=== PATIENT | female | born 1965 | race Caucasian/White ===

== ENCOUNTER 2019-07-26 21:00 | Inpatient (IN) | payer OTHER ==
[~2019-07-26 21:00] MED LIST: Aspirin Chewable 81 MG TAB ONE; Heparin 10,000 UNITS/ 10 ML VIAL ONE
[2019-07-26] MEDS ORDERED: Morphine 4 MG/ML VIAL ONE (21:10)
[2019-07-26] MEDS ORDERED: Ondansetron PF 4 MG/2 ML Vial ONE ×2 (21:10→21:48)
[2019-07-26 21:22] LABS: Hemoglobin 15.2 g/dL (12.0-16.0); Mean Corpuscular HGB CONC 33.5 g/dL (32.0-36.0); Mean Corpuscular Hemoglobin 31.1 pg (27.0-31.0); Mean Corpuscular Volume 92.8 fL (78.0-98.0); Mean Platelet Volume 9.7 fL (7.4-10.4); Platelet Count 214 thou/uL (130-400); RBC Distribution Width 12.1 % (11.5-14.5); White Blood Cell (WBC) Count 20.1 thou/uL (4.8-10.8)
[2019-07-26 21:27] LABS: BHCG - Serum Negative (NEGATIVE); Pregs Control Background? CLEAR/WHITE (CLR/WHITE); Pregs Control Bar Appear? YES (CONTROL BAR); Prothrombin Time 13.6 SEC (12.0-14.7)
[2019-07-26 21:33] LABS: PTT 19.2 SEC (22.9-36.1)
[2019-07-26 21:37] LABS: Eosinophils 1 % (0-10); Lymphocytes 38 % (21-51); MDiff Complete? YES; Metamyelocyte 1 % (0-0); Neutrophil 57 % (42-75); Platelet Morphology Comment Appears Adequate; Reactive Lymphocytes 3 % (0-10)
[2019-07-26 21:41] LABS: ALT (SGPT) 11 U/L (8-55); AST (SGOT) 12 U/L (5-34); Albumin 4.3 g/dL (3.5-5.0); Alkaline Phosphatase 87 U/L (40-110); Anion Gap 18 mmol/L (10-20); BUN (Urea Nitrogen) 7 mg/dL (9.8-20.1); Bilirubin, Total 0.3 mg/dL (0.2-1.2); Calc. Creatinine Clearance 0 mL/min (70-130); Carbon Dioxide 19 mmol/L (22-29); Chloride 106 mmol/L (98-107); Estimated GFR-MDRD 64; Globulin 3.1 g/dL (2.4-3.5); Glucose 128 mg/dL (70-105); Magnesium 2.1 mg/dL (1.6-2.6); Potassium 3.4 mmol/L (3.5-5.1); Protein, Total 7.4 g/dL (6.0-8.3); Sodium 140 mmol/L (136-145)
[2019-07-26] MEDS ORDERED: Atropine Sulfate 1 mg/10 ml Syringe ONE (21:48)
[2019-07-26] MEDS ORDERED: Heparin 10,000 UNITS/1 ML VIAL ONE (21:59)
[2019-07-26] MEDS ORDERED: Nitroglycerin 100MG/250ML BOT 250 ML ONE (21:59)
[2019-07-26 22:11] LABS: CKMB 1.3 ng/mL (0-6.6)
[2019-07-26] MEDS ORDERED: traMADol HCl 50 MG TAB PO PRN (22:27)
[2019-07-26] MEDS ORDERED: Zolpidem Tartrate 5 MG TAB PO PRN (22:27)
[2019-07-26] MEDS ORDERED: Milk Of Magnesia 30 ML UDCUP PO PRN (22:27)
[2019-07-26] MEDS ORDERED: Morphine 2 MG/ML SYRINGE SLOW IVP PRN (22:27)
[2019-07-26] MEDS ORDERED: Nitroglycerin 0.4 MG TAB (25 Tab Bottle) SL PRN (22:27)
[2019-07-26] MEDS ORDERED: Mag-Al 1200 mg/1200 mg/30 ML UDCUP PO PRN (22:27)
[2019-07-26] MEDS ORDERED: Acetaminophen/Codeine 30-300mg Tablet PO PRN (22:27)
[2019-07-26] MEDS ORDERED: Sodium Chloride 0.9% 500 ML IV SCH (22:30)
--- NOTE | 2019-07-26 22:36 | RAD ---
CHEST ONE VIEW: History: Stemi Comparison: None FINDINGS: Lungs are mildly hyperinflated. Low grade interstitial prominence but no effusion. IMPRESSION: Subtle cardiomegaly with mild pulmonary venous congestion. POS: HOME
[2019-07-26] MEDS ORDERED: Potassium Chloride 20 MEQ TAB PO SCH (22:45)
[2019-07-26 22:54] VITALS: BMI 21.0
--- NOTE | 2019-07-26 23:04 | HP ---
CHIEF COMPLAINT: Chest pain. HISTORY OF PRESENT ILLNESS: Ms. Jolly is a pleasant 53-year-old white female, who comes to the hospital for chest pain. She started having chest pain about 30 minutes prior to arrival to the hospital. It was severe midsternal. She had dinner probably about an hour and a half prior. She had some marijuana and some alcohol before that. She came in. EKG showed inferior ST elevations that looked like a posterior [place], so IV fluids were given and STEMI pager was activated. On my arrival, she was writhing in pain 10/10. We took her emergently to the catheterization lab, where she was found to have an occluded mid RCA. This was successfully wired and stented. She had a little spasm distal to the stent, which alleviated with IC nitroglycerin. She tolerated the procedure well. Imaging of the left coronary system showed just mild 40% mid LAD lesion and severe distal left circumflex lesion just before a small to medium-sized OM 3. She did well. Angio-Seal was placed in the right femoral arteriotomy site. She is pain free now. She did have some AIVR and bradycardia once we opened up the artery, but when she left the r and d lab technician she was in sinus rhythm and her STs had improved significantly. PAST MEDICAL HISTORY: 1. Hyperlipidemia. 2. Depression. 3. Glaucoma. SURGICAL HISTORY: . ALLERGIES: BIAXIN. OUTPATIENT MEDICATIONS: 1. Prozac 10 mg a day. 2. Estradiol 1 mg a day. 3. Lumigan eye drops. 4. Rosuvastatin. Unknown dose. FAMILY HISTORY: No early coronary artery disease. It is positive for diabetes and hypertension and her father had non-Hodgkin's lymphoma and mother had breast cancer. SOCIAL HISTORY: Admits to marijuana use and alcohol use occasionally. One pack a day of cigarettes for many years now. REVIEW OF SYSTEMS: A 12-point review of systems was done and was negative unless stated in the history of present illness. PHYSICAL EXAMINATION: VITAL SIGNS: Temperature 98.2, pulse 62, respiratory rate 18, saturating 98% on 2 L nasal cannula, and blood pressure 132/64. GENERAL: Awake, alert, and oriented x3, in no distress. HEENT: Normocephalic and atraumatic. NECK: Supple. LUNGS: Clear. CARDIOVASCULAR: S1, S2. No S3 or S4. No murmurs. ABDOMEN: Soft. Positive bowel sounds. EXTREMITIES: No edema. SKIN: Warm and dry. LABORATORY DATA: Laboratory work was reviewed which showed a white count of 20, hemoglobin of 15, hematocrit 45, and platelet count of 214. Coags were reviewed. Chemistry with a sodium 140, potassium was 3.4, chloride 106, carbon dioxide of 19, anion gap of 18, BUN of 7, creatinine 0.93, GFR of 64, and glucose was 128. Lactic acid was 3.6. Calcium, magnesium, total bilirubin, AST, ALT, and alkaline phosphatase were all normal. CK-MB was normal at 1.3. Troponin was 0.067. TSH was 4.07. test was negative. Albumin was 4.3. EKG was reviewed, inferior ST elevations with reciprocal changes. ASSESSMENT: 1. Inferior ST-elevation myocardial infarction. 2. Hyperlipidemia. 3. Substance abuse. 4. Tobacco use. PLAN: 1. Status post drug-eluting stent to the RCA. 2. Residual disease on her left circumflex will be dealt electively, probably in one month. 3. Continue Brilinta and aspirin for a minimum of 1 year. 4. High dose statin. We will increase her Crestor to max dose of 40 mg a day. 5. We will hold off on starting a beta-dean or an SHWETHA inhibitor today as her blood pressure was borderline low leaving the catheterization table. We will re-dress tomorrow morning. 6. Tobacco cessation counselling performed. 7. Cardiac rehab consult has been placed. 8. PPI for stress ulcer prophylaxis. 9. Full code. 10. Disposition, pending clinical evolution. Job ID: [id number] [email or web address]
[2019-07-26 23:43] LABS: CKMB 17.1 ng/mL (0-6.6)
[2019-07-26 23:44] LABS: Troponin I 1.311 ng/mL (< 0.028)
[2019-07-27 00:30] LABS: Lactic Acid 1.3 mmol/L (0.5-2.2)
[2019-07-27 02:04] LABS: Amphetamine Not Detected (NotDetected); Barbiturates Screen Not Detected (NotDetected); Benzodiazepine Screen Not Detected (NotDetected); Cocaine Metabolite Screen Not Detected (NotDetected); Medtox Control Line Valid? VALID (VALID); Medtox Reader # READER 4; Methadone Not Detected (NotDetected); Methamphetamine Not Detected (NotDetected); Opiate Screen Detected (NotDetected); Oxycodone Screen Not Detected (NotDetected); Phencyclidine (PCP) Not Detected (NotDetected); THC/Cannabinoid Screen Detected (NotDetected); Tricyclic Screen Not Detected (NotDetected)
[2019-07-27 05:34] LABS: #Basophils 0.1 thou/uL (0.0-0.2); #Lymphocytes 3.3 thou/uL (1.20-3.40); #Monocytes 0.7 thou/uL (0.11-0.59); #Neutrophils 11.5 thou/uL (1.40-6.50); %Basophils 0.5 % (0.0-1.0); %Eosinophils 0.2 % (0.0-10.0); %Lymphocytes 21.2 % (21.0-51.0); %Monocytes 4.6 % (0.0-10.0); %Neutrophils 73.5 % (42.0-75.0); Hemoglobin 13.3 g/dL (12.0-16.0); Mean Corpuscular HGB CONC 32.7 g/dL (32.0-36.0); Mean Corpuscular Hemoglobin 30.3 pg (27.0-31.0); Mean Corpuscular Volume 92.8 fL (78.0-98.0); Mean Platelet Volume 8.5 fL (7.4-10.4); Platelet Count 264 thou/uL (130-400); RBC Distribution Width 12.1 % (11.5-14.5); Red Blood Cell (RBC) Count 4.38 mill/uL (4.20-5.40); White Blood Cell (WBC) Count 15.7 thou/uL (4.8-10.8)
[2019-07-27 05:58] LABS: ALT (SGPT) 16 U/L (8-55); AST (SGOT) 69 U/L (5-34); Albumin 3.8 g/dL (3.5-5.0); Alkaline Phosphatase 79 U/L (40-110); Anion Gap 13 mmol/L (10-20); BUN (Urea Nitrogen) 8 mg/dL (9.8-20.1); Bilirubin, Total 0.2 mg/dL (0.2-1.2); Calc. Creatinine Clearance 73 mL/min (70-130); Carbon Dioxide 21 mmol/L (22-29); Cardiac Risk 3.3 (Less than 4.5); Chloride 107 mmol/L (98-107); Cholesterol 162 mg/dl (< 200 Desired); Estimated GFR-MDRD 81; Globulin 2.4 g/dL (2.4-3.5); Glucose 135 mg/dL (70-105); HDL Cholesterol 49 mg/dL (>60 Neg Risk); LDL Cholesterol, Calculated 84 mg/dL; Potassium 4.8 mmol/L (3.5-5.1); Protein, Total 6.2 g/dL (6.0-8.3); Sodium 136 mmol/L (136-145); Triglycerides 145 mg/dL (Less than 150)
[2019-07-27 06:04] LABS: CKMB 98.7 ng/mL (0-6.6)
[2019-07-27] MEDS: TICAGRELOR 90 MG TABLET PO SCH ×2 (08:32→20:22)
[2019-07-27] MEDS: Aspirin Chewable 81 MG TAB PO SCH (08:32)
[2019-07-27] MEDS: Lisinopril 5 MG TAB PO SCH (08:59)
--- NOTE | 2019-07-27 09:25 | CON ---
DATE OF CONSULTATION: HISTORY OF PRESENT ILLNESS: Marcelle Jolly is a 53-year-old female, who presents with chest pain. She really has no primary care physician. Apparently, there was associated shortness of breath. She was taken to the cardiac produce laborer. Please review the ux design manager note. Apparently, she underwent stenting. She tells me she has been smoking a pack a day for most of her life without any prior history of TB, pneumonia, or bronchial asthma. PAST MEDICAL HISTORY: Pertinent for high cholesterol, hypertension, and depression. HOME MEDICATIONS: Include 1. Prozac 10. 2. . 3. Lipitor. PAST SURGICAL HISTORY: . ALLERGIES: APPARENTLY BIAXIN. REVIEW OF SYSTEMS: Unremarkable. PHYSICAL EXAMINATION: VITAL SIGNS: Post cardiac cath, sats 92%, blood pressure elevated at 167/124, CHEST: No wheezing or crackles. CARDIAC: Normal S1, S2. ABDOMEN: No masses. Emergency cardiac cath status post cardiac stent as outlined. Hypertension, depression, high cholesterol. EKG showing acute inferior myocardial infarction. Septal infarct. PLAN: She is to refrain from smoking. Otherwise, continue present treatment as per Cardiology. Pulmonary will follow while in the ICU. Job ID: [id number]
--- NOTE | 2019-07-27 17:52 | PDOC.CPN ---
- Subjective Date: 07/27/19 Time: 17:50 Interval history: Doing well. No chest pain. - Review of Systems General: denies: fever/chills, weight/appetite/sleep changes, night sweats, fatigue Respiratory: denies: cough, congestion, shortness of breath, exercise intolerance Cardiovascular: denies: chest pain, palpitation, edema, paroxysmal nocturnal dyspnea, orthopnea Gastrointestinal: denies: nausea, vomiting, diarrhea, constipation, abd pain, GI bleeding Musculoskeletal: denies: pain, tenderness, stiffness, swelling, arthritis/ arthralgias Neurological: denies: numbness, syncope, seizure, weakness - Objective Allergies/Adverse Reactions: Allergies Allergy/AdvReac Type Severity Reaction Status Date / Time clarithromycin [From Biaxin] Allergy Verified 07/27/19 02:19 Visit Medications: Current Medications Acetaminophen/Codeine Phosphate (Tylenol #3) 1 tab PO Q4H PRN PRN Reason: Mild Pain (1-3) Al Hydroxide/Mg Hydroxide (Maalox) 30 ml PO Q3H PRN PRN Reason: Indigestion Aspirin (Aspirin Chewable) 81 mg PO DAILY [facility] Last Admin: 07/27/19 08:32 Dose: 81 mg Carvedilol (Coreg) 3.125 mg PO BID-[facility] Lisinopril (Zestril) 5 mg PO DAILY [facility] Last Admin: 07/27/19 08:59 Dose: 5 mg Magnesium Hydroxide (Milk Of Magnesium) 30 ml PO Q12H PRN PRN Reason: Constipation Morphine Sulfate (Morphine) 2 mg SLOW IVP Q4H PRN PRN Reason: Moderate Chest Pain (4-6) Nitroglycerin (Nitrostat) 0.4 mg SL Q5MIN PRN PRN Reason: Chest Pain Pantoprazole Sodium (Protonix) 40 mg PO DAILY [facility] Last Admin: 07/27/19 08:32 Dose: 40 mg Rosuvastatin Calcium (Crestor) 40 mg PO HS [facility] Sodium Chloride (Flush - Normal Saline) 10 ml IVF Q12HR [facility] Last Admin: 07/27/19 09:00 Dose: 10 ml Sodium Chloride (Flush - Normal Saline) 10 ml IVF PRN PRN PRN Reason: Saline Flush Ticagrelor (Brilinta) 90 mg PO BID [facility] Last Admin: 07/27/19 08:32 Dose: 90 mg Tramadol HCl (Ultram) 50 mg PO Q6H PRN PRN Reason: Mild Pain (1-3) Zolpidem Tartrate (Ambien) 5 mg PO HSPRN PRN PRN Reason: Insomnia Vital Signs & Weight: Vital Signs Temp Pulse Pulse Pulse BP BP BP 07/27/19 16:00 97.8 F 07/27/19 09:37 73 70 169/99 H 170/105 H 07/27/19 09:00 97.8 F 07/27/19 08:59 78 167/124 H 07/27/19 07:59 Pulse Ox Pulse Ox Pulse Ox 07/27/19 16:00 07/27/19 09:37 97 98 07/27/19 09:00 07/27/19 08:59 07/27/19 07:59 97 Weight 115 lb 3.2 oz - Physical Exam General: alert & oriented x3 HEENT: mucus membranes moist Neck: supple neck Cardiac: regular rate and rhythm Lungs: clear to auscultation Neuro: grossly intact Abdomen: active bowel sounds Extremities: no edema Skin: clear Musculoskeletal: no pain - Labs Result Diagrams: 07/27/19 05:25 07/27/19 05:25 Troponin/CKMB CK-MB (CK-2) 98.7 ng/mL (0-6.6) H* 07/27/19 05:25 Troponin I 20.470 ng/mL (< 0.028) H* 07/27/19 05:25 - Telemetry Sinus rhythms and dysrhythmias: sinus rhythm - Assessment/Plan Assessment/Plan: 1. Inferior STEMI, early presentation within 30 minutes of symptoms. 2. HTN 3. Ischemic CM 4. Tobacco use 5. Marihuana use PLAN: - Will transfer to telemetry - Will start BB and ACEI for BP and post WI therapies - Continue ASA/Brilinta - Continue high dose statin. - Cardiac rehab - Home tomorrow afternoon if she remains stable. - Counselled on tobacco cessation.
[2019-07-27] MEDS ORDERED: Carvedilol 3.125 MG TAB PO SCH (18:30)
[2019-07-27] MEDS ORDERED: Rosuvastatin 20 MG TAB PO SCH (21:00)
[2019-07-28 04:05] LABS: #Basophils 0.1 thou/uL (0.0-0.2); #Eosinphils 0.1 thou/uL (0.0-0.7); #Monocytes 0.6 thou/uL (0.11-0.59); #Neutrophils 6.7 thou/uL (1.40-6.50); %Basophils 0.6 % (0.0-1.0); %Lymphocytes 35.1 % (21.0-51.0); %Monocytes 5.2 % (0.0-10.0); Mean Corpuscular HGB CONC 32.8 g/dL (32.0-36.0); Mean Corpuscular Hemoglobin 30.7 pg (27.0-31.0); Mean Corpuscular Volume 93.5 fL (78.0-98.0); Mean Platelet Volume 8.6 fL (7.4-10.4); Platelet Count 247 thou/uL (130-400); RBC Distribution Width 12.2 % (11.5-14.5); Red Blood Cell (RBC) Count 4.25 mill/uL (4.20-5.40); White Blood Cell (WBC) Count 11.5 thou/uL (4.8-10.8)
[2019-07-28 04:23] LABS: Anion Gap 14 mmol/L (10-20); BUN (Urea Nitrogen) 9 mg/dL (9.8-20.1); Calc. Creatinine Clearance 73 mL/min (70-130); Calcium 9.2 mg/dL (7.8-10.44); Carbon Dioxide 22 mmol/L (22-29); Chloride 104 mmol/L (98-107); Estimated GFR-MDRD 81; Glucose 92 mg/dL (70-105); Sodium 136 mmol/L (136-145)
--- NOTE | 2019-07-28 07:15 | EKG ---
Test Reason : Blood Pressure : / mmHG Vent. Rate : 066 BPM Atrial Rate : 066 BPM P-R Int : 150 ms QRS Dur : 072 ms QT Int : 436 ms P-R-T Axes : 070 065 -24 degrees QTc Int : 457 ms Sinus rhythm with occasional Premature ventricular complexes Biatrial enlargement T wave abnormality, consider inferior ischemia Abnormal ECG When compared with ECG of 26-JUL-2019 21:13, (Unconfirmed) Significant changes have occurred Confirmed by DR. Lianna MEEHAN ([id number]) on 07/28/2019 7:15:22 AM Referred By: HERMAN Confirmed By:DR. Lianna MEEHAN
[2019-07-28] MEDS ORDERED: Carvedilol 3.125 MG TAB PO SCH (08:00)
[2019-07-28] MEDS: TICAGRELOR 90 MG TABLET PO SCH (08:30)
[2019-07-28] MEDS: Lisinopril 5 MG TAB PO SCH (08:31)
[2019-07-28] MEDS: Aspirin Chewable 81 MG TAB PO SCH (08:31)
[2019-07-28] MEDS ORDERED: Lisinopril 10 MG TAB PO SCH (13:15)
[2019-07-28 13:22] VITALS: TEMP 97.5
--- NOTE | 2019-07-28 13:26 | DIS ---
DATE OF ADMISSION: 07/26/2019 DATE OF DISCHARGE: 07/28/2019 DISCHARGING PHYSICIAN: Lukasz Mares MD. PRIMARY DIAGNOSES: 1. Inferior ST-elevation myocardial infarction. 2. Hypertension. 3. Tobacco use. SUMMARY: Ms. Jolly is a pleasant 53-year-old white female, who came to the hospital for chest pain. She was diagnosed with an inferior ST-elevation [place], taken emergently to the catheterization lab, where she was found to have an occluded mid RCA. This was wired and stented successfully with a drug-eluting stent. She did well after that. Chest pain was completely gone after the artery was opened up. She did well postoperatively for the last couple of days. She has no symptoms, no more chest pain, no tightness or pressure. Walking around without issues. No shortness of breath. She has tolerated her home medications well. We uptitrated the lisinopril and beta-dean as her blood pressure was little bit on the high side. She is ready for discharge today. We counseled her on tobacco cessation over 10 minutes. DISCHARGE MEDICATIONS: 1. Resume her outpatient medicines except for Crestor, which will be increased to 40 mg a day. 2. Lisinopril 10 mg a day. 3. Carvedilol 3.125 b.i.d. 4. Brilinta 90 mg b.i.d. 5. Aspirin 81 mg a day. 6. Sublingual nitroglycerin p.r.n. FOLLOWUP: 1. Follow up with myself in 2 to 4 weeks. 2. Follow up with PCP in 1 month. Over 45 minutes spent at bedside counseling for discharge. Job ID: [id number] [id number]
[2019-07-28 14:59] VITALS: BP 145/82
[2019-07-29] MEDS ORDERED: Lisinopril 10 MG TAB PO SCH (09:00)
== END 2019-07-28 15:59 | disposition home or self-care (01) | DRG 247 ==
LOC: ERS 21:00 → CCL 21:53 → CCU 22:48 → 2NO 07-28 06:54
PROVIDERS: ADMIT Internal Medicine Cardiovascular Disease; ATTEND Internal Medicine Cardiovascular Disease
PROC: 027034Z Dilation of Coronary Artery, One Artery with Drug-eluting Intraluminal Device, Percutaneous Approach (ICD-10-PCS; principal; 2019-07-26)
PROC: 4A023N7 Measurement of Cardiac Sampling and Pressure, Left Heart, Percutaneous Approach (ICD-10-PCS; 2019-07-26)
PROC: B2151ZZ Fluoroscopy of Left Heart using Low Osmolar Contrast (ICD-10-PCS; 2019-07-26)
PROC: B2111ZZ Fluoroscopy of Multiple Coronary Arteries using Low Osmolar Contrast (ICD-10-PCS; 2019-07-26)
DX: I21.19 ST elevation (STEMI) myocardial infarction involving other coronary artery of inferior wall (principal); E78.5 Hyperlipidemia, unspecified; F32.9 Major depressive disorder, single episode, unspecified; H40.9 Unspecified glaucoma; F12.10 Cannabis abuse, uncomplicated; E78.00 Pure hypercholesterolemia, unspecified; F17.210 Nicotine dependence, cigarettes, uncomplicated; I10 Essential (primary) hypertension; I25.5 Ischemic cardiomyopathy; Z88.1 Allergy status to other antibiotic agents; Z79.899 Other long term (current) drug therapy
CPT/HCPCS: 36415; 71045; 80048; 80053; 80061; 80306; 82550; 82553; 83605; 83735; 83880; 84443; 84484; 84703; 85025; 85347; 85610; 85730; 92928; 93005; 93010; 93306; 93458; 93798; 96374; 96375; C1760; C1769; C1874; C1887; C9600; J0461; J1644; J2270; J2405

== ENCOUNTER 2021-03-22 12:29 | Outpatient (CLI) | payer OTHER | END 2021-03-22 12:30 | disposition home or self-care (01) | LOC: BICULT 12:29 | PROVIDERS: ATTEND Urology | DX: N39.46 Mixed incontinence (principal); N39.0 Urinary tract infection, site not specified | CPT/HCPCS: 76770 ==

== ENCOUNTER 2021-12-27 12:31 | Outpatient (CLI) | payer OTHER | END 2021-12-27 12:32 | disposition home or self-care (01) | LOC: BICMAMMO 12:31 | PROVIDERS: ATTEND Family Medicine | DX: Z12.31 Encounter for screening mammogram for malignant neoplasm of breast (principal); Z91.89 Other specified personal risk factors, not elsewhere classified; Z80.3 Family history of malignant neoplasm of breast | CPT/HCPCS: 77063; 77067 ==

== ENCOUNTER 2023-01-15 11:40 | Outpatient (CLI) | payer OTHER | END 2023-01-15 11:41 | disposition home or self-care (01) | LOC: BICMAMMO 11:40 | PROVIDERS: ATTEND Family Medicine | DX: Z12.31 Encounter for screening mammogram for malignant neoplasm of breast (principal); Z80.3 Family history of malignant neoplasm of breast; Z91.89 Other specified personal risk factors, not elsewhere classified | CPT/HCPCS: 77063; 77067 ==

== ENCOUNTER 2024-06-01 15:37 | Outpatient (CLI) | payer OTHER | END 2024-06-01 15:38 | disposition home or self-care (01) | LOC: BICMAMMO 15:37 | PROVIDERS: ATTEND Family Medicine | DX: Z12.31 Encounter for screening mammogram for malignant neoplasm of breast (principal); Z80.3 Family history of malignant neoplasm of breast; Z91.89 Other specified personal risk factors, not elsewhere classified | CPT/HCPCS: 77063; 77067 ==